=== PATIENT | female | born 1940 | race Caucasian/White ===

== ENCOUNTER → 2018-12-09 | Outpatient (CLI) | payer OTHER | END | disposition home or self-care (01) | LOC: PCVCCLINIC 14:37 | PROVIDERS: ATTEND Internal Medicine | DX: R94.31 Abnormal electrocardiogram [ECG] [EKG] (principal); I10 Essential (primary) hypertension; E11.9 Type 2 diabetes mellitus without complications; I49.9 Cardiac arrhythmia, unspecified; E78.5 Hyperlipidemia, unspecified; M19.90 Unspecified osteoarthritis, unspecified site; Z79.82 Long term (current) use of aspirin; Z79.899 Other long term (current) drug therapy | CPT/HCPCS: 93005; G0463 ==

== ENCOUNTER → 2019-01-13 | Outpatient (CLI) | payer OTHER ==
[~2019-01-13] MED LIST: REGADENOSON 0.4 MG/5 ML DISP.SYRIN. IV ONE
--- NOTE | 2019-01-13 13:48 | PCVCIMAG ---
APPROVED REPORT Study performed: 01/13/2019 08:29:36 EXAM: Comprehensive 2D, Doppler, and color-flow Echocardiogram Patient Location: Echo lab Room #: 2Status: routine BSA: 1.80 HR: 65 bpmBP: 124/66 mmHg Rhythm: NSR with sinus arrhythmia Other Information Study Quality: Good Indications Abnormal ECG Diabetes Dyspnea Palpitations Hypertension/HDD 2D Dimensions IVSd: 8.74 (7-11mm)LVOT Diam: 19.45 (18-24mm) LVDd: 45.94 mm PWd: 8.79 (7-11mm)Ascending Ao: 27.09 (22-36mm) LVDs: 26.85 (25-40mm) Left Atrium: 35.97 (27-40mm) Aortic Root: 23.55 mm LV Single Plane 4CH: 67.99 % LV Single Plane 2CH: 78.96 % Biplane EF: 75.3 % Volumes Left Atrial Volume (Systole) Single Plane 4CH: 38.06 mLSingle Plane 2CH: 41.40 mL Biplane LA Volume: 44.00 mLLA ESV Index: 24.00 mL/m2 Aortic Valve AoV Peak Parveen.: 1.47 m/s AO Peak Gr.: 8.63 mmHgLVOT Max P.55 mmHg LVOT Max V: 1.07 m/s JUSTICE Vmax: 2.16 cm2 Mitral Valve E/A Ratio: 0.8 MV Decel. Time: 105.17 ms MV E Max Parveen.: 0.96 m/s MV A Parveen.: 1.25 m/s IVRT: 62.28 ms TDI E/Lateral E': 10.67E/Medial E': 10.67 Medial E' Parveen.: 0.09 m/s Lateral E' Parveen.: 0.09 m/s Pulmonary Valve PV Peak Parveen.: 0.82 m/sPV Peak Gr.: 2.67 mmHg Pulmonary Vein P Vein S: 0.63 m/sP Vein A: 0.32 m/s P Vein D: 0.35 m/sP Vein A Dur.: 131.5 msec P Vein S/D Ratio: 1.80 Tricuspid Valve TR Peak Parveen.: 3.42 m/s TR Peak Gr.: 46.87 mmHg TV Vmax: 0.63 m/sPA Pressure: 54.00 mmHg Left Ventricle The left ventricle is normal size. There is normal LV segmental wall motion. There is normal left ventricular wall thickness. Left ventricular systolic function is normal. The left ventricular ejection fraction is within the normal range. LVEF is >70%. Grade I - abnormal relaxation pattern. Right Ventricle The right ventricle is normal size. The right ventricular systolic function is normal. Atria The left atrium size is normal. Right atrium is mildly dilated. Aortic Valve Aortic valve is trileaflet. Aortic valve leaflets are mildly sclerotic but open well. No aortic regurgitation is present. There is no aortic valvular stenosis. Mitral Valve The mitral valve is normal in structure. Mild mitral regurgitation. No evidence of mitral valve stenosis. Tricuspid Valve The tricuspid valve is normal in structure. Moderate to severe tricuspid regurgitation with a PA pressure of 54 mmHg. Moderate pulmonary hypertension. Pulmonic Valve The pulmonary valve is normal in structure. Mild to moderate pulmonic regurgitation. Great Vessels The aortic root is normal in size. The ascending aorta is normal in size. Aortic arch is not well visualized. IVC is normal in size and collapses >50% with inspiration. Pericardium There is no pericardial effusion. There is no pleural effusion. <Conclusion> The left ventricle is normal size. LVEF is >70%. Right atrium is mildly dilated. Aortic valve is trileaflet. Aortic valve leaflets are mildly sclerotic but open well. The mitral valve is normal in structure. Mild mitral regurgitation. The tricuspid valve is normal in structure. Moderate to severe tricuspid regurgitation with a PA pressure of 54 mmHg. Moderate pulmonary hypertension. The pulmonary valve is normal in structure. Mild to moderate pulmonic regurgitation. There is no pericardial effusion. There is no pleural effusion.
--- NOTE | 2019-01-19 17:53 | PCVCIMAG ---
APPROVED REPORT Imaging Protocol: Rest Tc-99m/Stress Tc-99m 1 day Study performed: 01/13/2019 09:23:54 Indication: Abnormal EKG, Dyspnea Patient Location: Out-Patient Stress Nurse: Cat Sibley RN, Linette Finn RN [place] Tech:Delia Llanosvaldo [facility] Ht: 5 ft 3 in Wt: 170 lbs BSA: 1.80 m2 HR: 52 bpm BP: 151/70 mmHg BMI: 30.11 Rhythm: Sinus Bradycardia Medical History Medical History: HTN, Hyperlipidemia, Diabetic Noninsulin Medications: ASA, Atorvastatin, HCTZ, Lisinopril, Metoprolol, Omeprazole Allergies: Amoxicillin Cardiac Risk Factors: Age Pretest Chest Pain Characteristics: No chest pain Exercise History: Physically active Meds Held (24 hrs): Metoprolol Resting Data Rest SPECT myocardial perfusion imaging was performed in supine position 45 minutes following the intravenous injection of 10.7 mCi of Tc-99m Sestamibi. Time of rest injection: 929 Date: 01/13/2019 Administration Route: IV Administration Site: Right AC Pharmacologic Stress Pharmacologic stress test was performed by injecting Regadenoson 0.4 mg IV push over 10-15 seconds immediately followed by the intravenous injection of 32.6 mCi of Tc-99m Sestamibi. Time of stress injection: 5 Administration Route: IV Administration Site: Right AC Gated Stress SPECT was performed 45 minutes after stress injection. The images were gated to evaluate regional wall motion and calculate left ventricular ejection fraction. Stress Test Details Stress Test: Pharmacologic stress testing performed using 0.4 mg of regadenoson per 5 mL given IV over 10 seconds. Reason for pharmacologic stress test: knee issues. HRMax Heart Rate (APMHR): 142 bpm Resting HR: 52 bpmTarget HR (85% APMHR): 120 bpm Max HR Achieved: 71 bpm % of APMHR: 50 Recovery HR: 63 bpm BP Resting BP: 151/70 mmHg Max BP: 140/68 mmHg Recovery BP: 131/61 mmHg ECG Resting ECG: Sinus Bradycardia Stress ECG: Sinus Rhythm Arrhythmia: VPC's Recovery ECG: Sinus Rhythm Clinical Reason for Termination: Completed protocol Stress Symptoms: Dyspnea, Headache Exercise duration: 0 min 55 sec Symptoms resolved with caffeine. Stress ECG Conclusion 1. Adequate response to intravenous Lexiscan 2. Inadequate heart rate for ECG diagnosis Study Data Post stress, the left ventricular ejection was 73%.. SSS: 0 SRS: 0 SDS: 0 TID = 0.97. Perfusion There is a small area of moderately reduced uptake in the apical segment of the anterior wall which is seen on the stress images as well as the resting images. This area thickens and moves normally and is most consistent with attenuation artifact. Nuclear Conclusion ECG Findings: non-diagnostic Clinical Findings: negative for ischemia Nuclear Findings: negative for ischemia Exercise Capacity: not assessed Left Ventricular Function: normal 1. Low risk study <Conclusion> 1. Adequate response to intravenous Lexiscan 2. Inadequate heart rate for ECG diagnosis
== END | disposition home or self-care (01) ==
LOC: PCVCIMAG 09:11
PROVIDERS: ATTEND Internal Medicine
DX: I08.1 Rheumatic disorders of both mitral and tricuspid valves (principal); I10 Essential (primary) hypertension; R00.2 Palpitations; R06.09 Other forms of dyspnea; E11.9 Type 2 diabetes mellitus without complications; R94.31 Abnormal electrocardiogram [ECG] [EKG]; I27.20 Pulmonary hypertension, unspecified
CPT/HCPCS: 78452; 93017; 93306; A9500; J2785

== ENCOUNTER → 2019-07-14 | Outpatient (CLI) | payer OTHER | END | disposition home or self-care (01) | LOC: PCVCCLINIC 10:00 | PROVIDERS: ATTEND Internal Medicine | DX: E78.5 Hyperlipidemia, unspecified (principal); I10 Essential (primary) hypertension; E11.9 Type 2 diabetes mellitus without complications; R06.00 Dyspnea, unspecified; R00.2 Palpitations; Z88.1 Allergy status to other antibiotic agents | CPT/HCPCS: 36415; 80061; 93005; G0463 ==